=== PATIENT | female | born 1940 | race Asian ===

== ENCOUNTER 2019-02-02 12:27 | Inpatient (IN) | payer OTHER, BC ==
[~2019-02-02] VITALS: Ht 149.9 cm; Wt 61.2 kg
[2019-02-02 12:32] VITALS: BP 143/100
--- NOTE | 2019-02-02 12:38 | NUR ---
PATIENT AMBULATED TO BED 2 AT THIS TIME.
--- NOTE | 2019-02-02 12:40 | NUR ---
Note undone in EDM - 02/02/19 at 1540 by [email or web address] 78/F BIB SISTER C/O CONSTIPATION & EPIGASTRIC PAIN 01/18 X 2 WEEKS. TOOK DULCOLAX & PRUNE JUICE X 2 DAYS & C/O DIARRHEA. COLD/HOT CHILLS, NO APPETITE, FEELING WEAK. PMH: LYMPHOMA CANCER. AAOX4 WITH EVEN AND STEADY GAIT.PATIENT POSITIONED FOR COMFORT; HOB ELEVATED; BEDRAILS UP X1; BED DOWN. ER MADE AWARE OF PT STATUS.
--- NOTE | 2019-02-02 12:40 | NUR ---
78/F BIB SISTER C/O CONSTIPATION & EPIGASTRIC PAIN 10 X 2 WEEKS. TOOK DULCOLAX & PRUNE JUICE X 2 DAYS & C/O DIARRHEA. COLD/HOT CHILLS, NO APPETITE, FEELING WEAK. PMH: HIGH CHOLESTEROL, HTN, DM. AAOX4 WITH EVEN AND STEADY GAIT.PATIENT POSITIONED FOR COMFORT; HOB ELEVATED; BEDRAILS UP X1; BED DOWN. ER MD MADE AWARE OF PT STATUS.
--- NOTE | 2019-02-02 12:55 | NUR ---
Patient being evaluated by DR SUAZO at bedside.
[2019-02-02] MEDS ORDERED: NACL 0.9% 1,000 ML IV ONE (12:59)
--- NOTE | 2019-02-02 13:25 | NUR ---
PT TAKEN TO CT VIA [facility], ACCOMPANIED BY CARDIOLOGY CLINICAL CONSULTANT.
[2019-02-02 13:26] LABS: BASOPHILS % (AUTO) 0.3 % (0.0-2.0); EOSINOPHILS # (AUTO) 0.1 K/uL (0-0.4); EOSINOPHILS % (AUTO) 0.7 % (0.0-4.0); HEMATOCRIT 37.2 % (36-48); HEMOGLOBIN 12.4 g/dL (12.0-16.0); LYMPHOCYTES # (AUTO) 1.1 K/uL (2.5-16.5); LYMPHOCYTES % (AUTO) 12.7 % (20.5-51.1); MEAN CORPUSCULAR HEMOGLOBIN 30 pg (27-31); MEAN CORPUSCULAR HGB CONC 34 g/dL (33-37); MEAN CORPUSCULAR VOLUME 88.2 fL (80-94); MONOCYTES % (AUTO) 11.2 % (1.7-9.3); NEUTROPHILS # (AUTO) 6.4 K/uL (1.8-7.7); NEUTROPHILS % (AUTO) 75.1 % (42.2-75.2); PLATELET COUNT (AUTO) 351 K/uL (140-450); RED BLOOD CELL COUNT(AUTO) 4.21 MIL/uL (4.20-5.40); RED CELL DISTRIBUTION WIDTH 13.5 % (11.6-13.7); WHITE BLOOD COUNT (AUTO) 8.5 K/uL (4.8-10.8)
[2019-02-02 13:26] LABS: APPEARANCE,URINE SL CLOUDY (CLEAR); BILIRUBIN,URINE NEGATIVE (NEGATIVE); BLOOD, URINE 2+ (NEGATIVE); COLOR,URINE YELLOW (YELLOW); LEUKOCYTE ESTERASE ,URINE 3+ (NEGATIVE); NITRITE, URINE POSITIVE (NEGATIVE); UGLUCOSE 1+ (NEGATIVE)
--- NOTE | 2019-02-02 13:37 | NUR ---
PT RETURNED FROM CT.
[2019-02-02 13:42] LABS: ALBUMIN 2.7 g/dL (3.4-5.0); AMYLASE 53 U/L (25-115); ANION GAP 12.3 (8-16); ASPARTATE AMINOTRANSFERASE 54 U/L (15-37); CARBON DIOXIDE 25.3 mmol/L (21-32); CHLORIDE 102 mmol/L (98-107); CREATININE 0.7 mg/dL (0.6-1.3); GAMMA GLUTAMYL TRANSFERASE 95 U/L (7-51); GLUCOSE 189 mg/dL (74-106); LIPASE 382 U/L (73-393); MAGNESIUM 2.2 mg/dL (1.8-2.4); POTASSIUM 3.6 mmol/L (3.5-5.1); SODIUM SERUM 136 mmol/L (136-145); TOTAL BILIRUBIN 0.4 mg/dL (0.0-1.0); UREA NITROGEN, BLOOD 12 mg/dL (7-18)
[2019-02-02 13:52] LABS: RBC,URINE 11-20 (MOD) /HPF (0-5); WBC,URINE TOO MANY TO COUNT /HPF (0-5)
[2019-02-02 13:56] LABS: ACETONE, SERUM NEGATIVE (NEGATIVE)
[2019-02-02] MEDS ORDERED: LEVOFLOXACIN 500 MG/D5W PREMIX 100 ML IV ONE (14:55)
--- NOTE | 2019-02-02 16:00 | NUR ---
RECIEVED REPORT FROM ER NURSE SRINATH. PT WALKED FROM [place] TO BED. A&OX4, PT LAYING IN BED. BREATHING SYMMETRICAL AND UNLABORED. IV IN LEFT F.A 20 G CONNECTED TO N.S @ 100ML/HR. PT EDUCATED ON HOW TO USE CALL LIGHT. PT RETURNED DEMONSTRATION OF CALL LIGHT. CALL LIGHT WITHIN REACH. WAITING ON SISTER TO COME AND DO MED RECON.
--- NOTE | 2019-02-02 16:00 | NUR ---
Patient will be admitted to care of DR CAVAZOS. Admited to MS. Will go to room 126a. Belongings list completed. Report to CHETAN MARQUEZ.
[2019-02-02] MEDS ORDERED: INSULIN LISPRO SLIDING SCALE 100 UNITS/ML VIAL SUBQ PRN (18:25)
[2019-02-02] MEDS ORDERED: DEXTROSE 50% 50 ML SYR IVP PRN (18:25)
--- NOTE | 2019-02-02 18:30 | NUR ---
Received orders from Dr Caal. All order noted. Pt agree with plan of care.
[2019-02-02] MEDS ORDERED: AMLO5TAB6 PO (18:31)
[2019-02-02] MEDS ORDERED: APIX5TAB PO (18:31)
[2019-02-02] MEDS ORDERED: METF500T2 PO (18:31)
[2019-02-02] MEDS: NACL 0.9% 1,000 ML IV SCH (18:33)
--- NOTE | 2019-02-02 19:37 | NUR ---
REPORT GIVEN TO PM NURSE SHA. PT AMBULATING TO BATHROOM. NO VISIBLE SIGNS OF DISTRESS.
--- NOTE | 2019-02-02 19:38 | NUR ---
RECEIVED BEDSIDE REPORT FROM DAY SHIFT NURSE. PT IN STABLE CONDITION. IV SITE ON LFA 20G, RUNNING WITH NS @60ML/HR. PATENT AND INTACT. NO S/S OF SOB OR ANY DISCOMFORT. [place] NOTED ON BOTH EAR. NO HEARING AID AT THIS STATUS. SKIN INTACT, WARM AND DRY TO TOUCH. BED IN LOW POSITION. CALL LIGHT WITHIN REACH.
[2019-02-02 20:00] VITALS: BP 131/70
[2019-02-02] MEDS: APIXABAN 2.5 MG TAB PO SCH (20:59)
[2019-02-02] MEDS: BLOOD GLUCOSE MONITORING 1 DEV DEV FS SCH (21:00)
[2019-02-02] MEDS ORDERED: NON-FORMULARY ITEM (Apixaban (Eliquis) 5 MG) PO SCH (21:00)
--- NOTE | 2019-02-02 21:00 | NUR ---
ADMINISTERED ELIQUIS AND BS CHECK DONE. 197. GIVEN 2UNITS OF INSULIN. PT TOLERATED WELL.
--- NOTE | 2019-02-02 23:00 | NUR ---
PT SLEEPING IN BED. NO S/S OR DISCOMFORT. WILL CONTINUE TO MONITOR.
[2019-02-03] VITALS: BP 131/70
[2019-02-03] MEDS: NACL 0.9% 1,000 ML IV SCH (01:03)
--- NOTE | 2019-02-03 01:03 | NUR ---
NS IV BAG INFUSED. NEW NS BAG INFUSING @0103. PT TOLERATING WELL.
--- NOTE | 2019-02-03 01:05 | NUR ---
PT AMBULATORY SCD IS NOT NECESSARY.
--- NOTE | 2019-02-03 03:15 | NUR ---
PT SLEEPING COMFORTABLY IN BED. NO S/S OF DISCOMFORT. NO SOB NOTED. WILL CONTINUE TO MONITOR.
[2019-02-03] MEDS: BLOOD GLUCOSE MONITORING 1 DEV DEV FS SCH ×3 (05:27→16:30)
--- NOTE | 2019-02-03 05:27 | NUR ---
BS CHECKED. 108 NOTED. NO INSULIN COVERAGE NEEDED. NO S/S OF ANY DISCOMFORT.
[2019-02-03 06:38] LABS: BASOPHILS % (AUTO) 0.5 % (0.0-2.0); EOSINOPHILS # (AUTO) 0.1 K/uL (0-0.4); HEMATOCRIT 35.7 % (36-48); HEMOGLOBIN 12.1 g/dL (12.0-16.0); LYMPHOCYTES % (AUTO) 13.1 % (20.5-51.1); MEAN CORPUSCULAR HEMOGLOBIN 30 pg (27-31); MEAN CORPUSCULAR HGB CONC 34 g/dL (33-37); MEAN CORPUSCULAR VOLUME 87.6 fL (80-94); MONOCYTES # (AUTO) 0.9 K/uL (0.8-1.0); NEUTROPHILS # (AUTO) 5.9 K/uL (1.8-7.7); NEUTROPHILS % (AUTO) 74.4 % (42.2-75.2); PLATELET COUNT (AUTO) 332 K/uL (140-450); RED BLOOD CELL COUNT(AUTO) 4.07 MIL/uL (4.20-5.40); RED CELL DISTRIBUTION WIDTH 13.6 % (11.6-13.7); WHITE BLOOD COUNT (AUTO) 7.9 K/uL (4.8-10.8)
[2019-02-03 06:41] LABS: ALBUMIN 2.3 g/dL (3.4-5.0); ANION GAP 12.9 (8-16); ASPARTATE AMINOTRANSFERASE 32 U/L (15-37); CARBON DIOXIDE 26.4 mmol/L (21-32); CHLORIDE 107 mmol/L (98-107); CREATININE 0.8 mg/dL (0.6-1.3); GLUCOSE 118 mg/dL (74-106); POTASSIUM 4.3 mmol/L (3.5-5.1); SODIUM SERUM 142 mmol/L (136-145); TOTAL BILIRUBIN 0.4 mg/dL (0.0-1.0); UREA NITROGEN, BLOOD 8 mg/dL (7-18)
--- NOTE | 2019-02-03 07:12 | NUR ---
RECEIVED REPORT FROM PM NURSE SHA. PT SLEEP IN BED. NO VISIBLE SIGNS OF DISTRESS. BED IN LOWEST POSITION. CALL LIGHT WITHIN REACH.
--- NOTE | 2019-02-03 07:20 | NUR ---
REPORT GIVEN TO AM NURSE AT BEDSIDE. PT IN STABLE CONDITION.
[2019-02-03 08:10] VITALS: BP 138/60
--- NOTE | 2019-02-03 08:26 | NUR ---
PATIENT HAS BEEN SCREENED AND CATEGORIZED MODERATE NUTRITION RISK. PATIENT WILL BE SEEN WITHIN 3-5 DAYS OF ADMISSION. 02/05/[address]
[2019-02-03] MEDS ORDERED: NON-FORMULARY ITEM (Metformin HCl* (Glucophage Xr*) 1 TAB) PO SCH (09:00)
[2019-02-03] MEDS ORDERED: amLODIPine 5 MG TAB PO SCH (09:00)
[2019-02-03] MEDS: APIXABAN 2.5 MG TAB PO SCH (09:30)
--- NOTE | 2019-02-03 11:30 | NUR ---
PT COMPLAINED OF TENDERNESS TO LEFT F.A IV SITE. NOTED REDNESS ABOVE INSERTION SITE. IV FLUID HELD.
--- NOTE | 2019-02-03 12:54 | NUR ---
PT AMBULATING IN HALLWAY. PT WEARING NON-SKID SOCKS. GAIT STEADY. INSTRUCTED PT TO STAY WITHIN THE UNIT. PT VERBALIZED UNDERSTANDING.
[2019-02-03] MEDS ORDERED: LEVOFLOXACIN 250 MG/D5 PREMIX 50 ML IV SCH (15:00)
[2019-02-03] MEDS ORDERED: LEVOFLOXACIN 250 MG TAB PO SCH (16:00)
[2019-02-03] MEDS ORDERED: LEVOFLOXACIN 500 MG TAB PO SCH (16:05)
[2019-02-03 16:15] VITALS: BP 138/55
[2019-02-03] MEDS ORDERED: LEVO500T2 PO (17:02)
--- NOTE | 2019-02-03 17:40 | NUR ---
PT'S SISTER ARRIVED. WRITTEN DISCHARGE INSTRUCTIONS GIVEN TO PT, WITH SISTER, ANNIKA TRANSLATING SPANISH/ LITHUANIAN. PT AND SISTER VERBALIZE UNDERSTANDING OF DISCHARGE PLANS. PT DISCHARGED AT THIS TIME TO HOME. AMBULATED OFF UNIT WITH STEADY GAIT, ACCOMPANIED BY SISTER. NAME BAND REMOVED. ALL BELONGINGS WITH PT.
== END 2019-02-03 17:40 | disposition home or self-care (01) | DRG 690 ==
LOC: MED 12:27 → MMU 15:31
PROVIDERS: ADMIT Internal Medicine Geriatric Medicine; ATTEND Internal Medicine Geriatric Medicine
DX: N39.0 Urinary tract infection, site not specified (principal); C85.90 Non-Hodgkin lymphoma, unspecified, unspecified site; E44.0 Moderate protein-calorie malnutrition; E55.9 Vitamin D deficiency, unspecified; K59.00 Constipation, unspecified; H91.90 Unspecified hearing loss, unspecified ear; E11.9 Type 2 diabetes mellitus without complications; E78.5 Hyperlipidemia, unspecified; E86.0 Dehydration; R74.0 Nonspecific elevation of levels of transaminase and lactic acid dehydrogenase [LDH]; R19.7 Diarrhea, unspecified; I10 Essential (primary) hypertension; I48.2 Chronic atrial fibrillation; Z79.01 Long term (current) use of anticoagulants; Z68.27 Body mass index [BMI] 27.0-27.9, adult; Z90.710 Acquired absence of both cervix and uterus; Z80.3 Family history of malignant neoplasm of breast; Z79.84 Long term (current) use of oral hypoglycemic drugs; Z79.899 Other long term (current) drug therapy
CPT/HCPCS: 36415; 80053; 81001; 82009; 82150; 82948; 82977; 83036; 83690; 83735; 85025; 85379; 87081; 87086; 87186; 96361; 96365; 99285; J1815; J1956; J7030

== ENCOUNTER 2024-08-04 16:28 | Emergency (ER) | payer BC, OTHER ==
[~2024-08-04] VITALS: Ht 142.2 cm; Wt 63.5 kg
[~2024-08-04 16:28] MED LIST: AMLO-3 PO; APIX5TAB PO; LEVO500T2 PO; METF-1139 PO
[2024-08-04 16:30] VITALS: BP 134/57; PULSE 67; RESP 17; TEMP 97.3; O2SAT 98
[2024-08-04 18:15] LABS: BASOPHILS % (AUTO) 0.3 % (0.0-2.0); EOSINOPHILS % (AUTO) 0.2 % (0.0-4.0); HEMATOCRIT 38.9 % (36-48); HEMOGLOBIN 13.1 g/dL (12.0-16.0); LYMPHOCYTES # (AUTO) 1.1 K/uL (2.5-16.5); LYMPHOCYTES % (AUTO) 13.1 % (20.5-51.1); MEAN CORPUSCULAR HEMOGLOBIN 30 pg (27-31); MEAN CORPUSCULAR HGB CONC 34 g/dL (33-37); MEAN CORPUSCULAR VOLUME 89.3 fL (80-94); MONOCYTES # (AUTO) 0.6 K/uL (0.8-1.0); MONOCYTES % (AUTO) 7.9 % (1.7-9.3); NEUTROPHILS # (AUTO) 6.4 K/uL (1.8-7.7); NEUTROPHILS % (AUTO) 78.5 % (42.2-75.2); PLATELET COUNT (AUTO) 204 K/uL (140-450); RED BLOOD CELL COUNT(AUTO) 4.36 MIL/uL (4.20-5.40); WHITE BLOOD COUNT (AUTO) 8.2 K/uL (4.8-10.8)
[2024-08-04 18:47] LABS: ALANINE AMINOTRANSFERASE 434 U/L (12-78); ALBUMIN 3.6 g/dL (3.4-5.0); ALKALINE PHOSPHATASE 172 U/L (50-136); ANION GAP 13.9 (8-16); ASPARTATE AMINOTRANSFERASE 739 U/L (15-37); CALCIUM 8.9 mg/dL (8.5-10.1); CARBON DIOXIDE 26.6 mmol/L (21-32); CHLORIDE 102 mmol/L (98-107); CREATININE 0.8 mg/dL (0.6-1.3); GLUCOSE 150 mg/dL (74-106); LIPASE 70 U/L (16-77); POTASSIUM 4.5 mmol/L (3.5-5.1); SODIUM SERUM 138 mmol/L (136-145); TOTAL BILIRUBIN 1.5 mg/dL (0.0-1.0); TOTAL PROTEIN, SERUM 7.4 g/dL (6.4-8.2); UREA NITROGEN, BLOOD 22 mg/dL (7-18)
[2024-08-04 19:35] LABS: BILIRUBIN,URINE NEGATIVE (NEGATIVE); BLOOD, URINE NEGATIVE (NEGATIVE); COLOR,URINE YELLOW (YELLOW); LEUKOCYTE ESTERASE ,URINE TRACE (NEGATIVE); NITRITE, URINE POSITIVE (NEGATIVE); PROTEIN,URINE NEGATIVE (NEGATIVE); UGLUCOSE NEGATIVE (NEGATIVE)
[2024-08-04 19:36] LABS: APPEARANCE,URINE SLIGHTLY HAZY (CLEAR)
[2024-08-04 19:38] LABS: BACTERIA,URINE 2+ /HPF (None Seen); MUCUS,URINE None Seen /LPF (None Seen); RBC,URINE 0 /HPF (0-5); SQUAMOUS EPITHELIAL CELL,UR 4-10 (MOD) /LPF (0-3 (FEW)); WBC,URINE 0-5 /HPF (0-5)
[2024-08-04] MEDS: NACL 0.9% 1,000 ML IV ONE (20:40)
[2024-08-04] MEDS: MORPHINE SULFATE 4 MG/ML SYR IVP ONE (20:42)
[2024-08-04 23:12] VITALS: BP 142/61; PULSE 85; RESP 15; O2SAT 98
== END 2024-08-05 01:15 | disposition short-term general hospital (02) ==
LOC: MED 16:28
DX: B17.9 Acute viral hepatitis, unspecified (principal); Z20.822 Contact with and (suspected) exposure to COVID-19; I10 Essential (primary) hypertension; E78.5 Hyperlipidemia, unspecified; Z95.0 Presence of cardiac pacemaker; Z90.49 Acquired absence of other specified parts of digestive tract; Z90.710 Acquired absence of both cervix and uterus; Z79.899 Other long term (current) drug therapy; Z79.01 Long term (current) use of anticoagulants
CPT/HCPCS: 36415; 74176; 80053; 81001; 82150; 83690; 85025; 87040; 87086; 87186; 87426; 93005; 96361; 96374; 99285; J2270; J7030